=== PATIENT | female | born 1990 | race Caucasian/White ===

== ENCOUNTER → 2016-09-09 | Outpatient (CLI) | payer BC ==
--- NOTE | 2016-09-10 14:26 | US ---
EXAM DATE: 09/09/16 PATIENT'S AGE: 25 Patient: JAKE ALVARADO Facility: [place], [place] Site . Site : 1990 Study: US Extremity [id number]/21/2017 4:39:57 PM Ordering Physician: Jac Og Final Report: INDICATION: pain in lower left leg LEFT LOWER EXTREMITY VENOUS DUPLEX ULTRASOUND TECHNIQUE: Duplex sonography using grayscale imaging as well as color and spectral Doppler interrogation was performed over the left lower extremity with attention to the deep venous system. FINDINGS: The left common femoral, femoral, deep femoral, popliteal, and posterior tibial veins show normal compressibility, color Doppler flow, and augmentation response. IMPRESSION: No evidence of deep venous thrombosis in the left lower extremity. JOHN CROWE MD [facility] Dictated by: Js Crowe MD @ 09/09/2016 17:00:10 (Electronic Signature) Report Signed by Proxy and Original Signed Document filed in the Medical Record. MTDD
== END ==
LOC: MW.CHRC 13:14
PROVIDERS: ATTEND Family Medicine
DX: M79.662 Pain in left lower leg (principal)
CPT/HCPCS: 93971-26-LT; 93971-LT

== ENCOUNTER 2018-01-03 20:40 | Emergency (ER) | payer BC ==
[2018-01-03] MEDS ORDERED: Sodium Chloride 0.9% 10 ML Syringe FLUSH PRN (21:15)
[2018-01-03] MEDS ORDERED: Ketorolac 30 MG/ML SDV IVPUSH ONE (21:15)
[2018-01-03] MEDS ORDERED: Sodium Chloride 0.9% 1,000 ML IV ONE (21:15)
[2018-01-03] MEDS ORDERED: Sodium Chloride 0.9% 2.5 ML Syringe FLUSH PRN (21:15)
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
[2018-01-03 21:57] LABS: CHLORIDE,CL 103 mmol/L (98-107); SODIUM,NA 137 mmol/L (136-145)
[2018-01-03] MEDS ORDERED: Iopamidol 755 MG/ML 200 ML Multipack Bottle IVPUSH STA (22:36)
[2018-01-03] MEDS ORDERED: Levofloxacin/Dextrose 5%-Water 500 MG in Premix Bag 1 BAG IV ONE (23:40)
[2018-01-04 00:59] VITALS: BP 115/76
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
== END 2018-01-04 00:55 | disposition home or self-care (01) ==
LOC: MW.ED 20:40
DX: N39.0 Urinary tract infection, site not specified (principal); G89.18 Other acute postprocedural pain; R60.0 Localized edema; Z88.1 Allergy status to other antibiotic agents
CPT/HCPCS: 36415; 74177; 80053; 81001; 83605; 84703; 85025; 87086; 87088; 87186; 96361; 96365; 96375; 99284; J1885; J1956; J7040; Q9967